=== PATIENT | female | born 1955 | race Caucasian/White ===

== ENCOUNTER 2017-11-26 14:42 | Outpatient (CLI) | payer OTHER | END 2017-11-26 14:51 | disposition home or self-care (01) | LOC: RAD 14:42 | DX: J44.9 Chronic obstructive pulmonary disease, unspecified (principal) ==

== ENCOUNTER 2018-02-05 08:37 | Outpatient (CLI) | payer OTHER | END 2018-02-05 08:42 | disposition home or self-care (01) | LOC: SONOGRAMA 08:37 | DX: R10.84 Generalized abdominal pain (principal) ==

== ENCOUNTER 2018-03-05 11:37 | Emergency (ER) | payer OTHER ==
[~2018-03-05] VITALS: Ht 165.1 cm; Wt 33.6 kg
[~2018-03-05 11:37] MED LIST: CLONAZEPAM0.5 MG PO; CYMBALTA60 MG PO; SEROQUEL300 MG PO; SYNTHROID50 MCG PO; XENAZINE25 MG PO
[2018-03-05] MEDS ORDERED: PROTONIX IV40 MG (11:57)
[2018-03-05] MEDS ORDERED: PREVACID15 MG (11:57)
== END 2018-03-05 16:01 | disposition home or self-care (01) ==
LOC: ER 11:37
DX: T82.898A Other specified complication of vascular prosthetic devices, implants and grafts, initial encounter (principal); J69.0 Pneumonitis due to inhalation of food and vomit; Z45.2 Encounter for adjustment and management of vascular access device; Y84.8 Other medical procedures as the cause of abnormal reaction of the patient, or of later complication, without mention of misadventure at the time of the procedure; Y92.89 Other specified places as the place of occurrence of the external cause

== ENCOUNTER → 2018-03-20 | Emergency (ER) | payer OTHER ==
[~2018-03-20] VITALS: Ht 165.1 cm; Wt 33.6 kg
[~2018-03-20] MED LIST changes: +PREVACID15 MG; +PROTONIX IV40 MG
== END | disposition home or self-care (01) ==
LOC: ER 13:16
DX: G10 Huntington's disease (principal); T82.898A Other specified complication of vascular prosthetic devices, implants and grafts, initial encounter; Z45.2 Encounter for adjustment and management of vascular access device; Y82.8 Other medical devices associated with adverse incidents; Y92.89 Other specified places as the place of occurrence of the external cause

== ENCOUNTER 2018-03-24 12:55 | Inpatient (IN) | payer OTHER ==
[~2018-03-24] VITALS: Ht 165.1 cm; Wt 33.6 kg
== END 2018-03-26 11:39 | disposition home health service (06) | DRG 641 ==
LOC: MEDJ 12:55 → SEC-K 12:55 → MEDJ 13:23
PROC: 3E0F7GC Introduction of Other Therapeutic Substance into Respiratory Tract, Via Natural or Artificial Opening (ICD-10-PCS; 2018-03-24)
PROC: 02HV33Z Insertion of Infusion Device into Superior Vena Cava, Percutaneous Approach (ICD-10-PCS; principal; 2018-03-25)
DX: E86.0 Dehydration (principal); G40.89 Other seizures; G10 Huntington's disease; R13.19 Other dysphagia

== ENCOUNTER 2018-05-18 12:56 | Inpatient (IN) | payer OTHER ==
[~2018-05-18] VITALS: Ht 162.6 cm; Wt 31.3 kg
== END 2018-05-20 11:24 | disposition home or self-care (01) | DRG 641 ==
LOC: SURH 12:56
PROC: 8E0ZXY6 Isolation (ICD-10-PCS; 2018-05-18)
PROC: 0XH Anatomical Regions, Upper Extremities, Insertion (ICD-10-PCS; principal; 2018-05-19)
PROC: 3E0F7GC Introduction of Other Therapeutic Substance into Respiratory Tract, Via Natural or Artificial Opening (ICD-10-PCS; 2018-05-19)
DX: E86.0 Dehydration (principal); G10 Huntington's disease; G40.89 Other seizures; R13.19 Other dysphagia

== ENCOUNTER 2018-05-28 13:30 | Outpatient (CLI) | payer OTHER | END 2018-05-28 13:37 | disposition home or self-care (01) | LOC: RAD 13:30 | DX: J44.9 Chronic obstructive pulmonary disease, unspecified (principal) ==

== ENCOUNTER 2018-05-28 14:28 | Outpatient (CLI) | payer OTHER | END 2018-05-28 14:33 | disposition home or self-care (01) | LOC: LAB 14:28 | DX: I10 Essential (primary) hypertension (principal); E03.8 Other specified hypothyroidism ==

== ENCOUNTER 2018-06-10 14:39 | Inpatient (IN) | payer OTHER ==
[~2018-06-10] VITALS: Ht 165.1 cm; Wt 29.5 kg
== END 2018-06-14 11:06 | disposition home or self-care (01) | DRG 641 ==
LOC: MEDJ 14:39
PROC: 0DH63UZ Insertion of Feeding Device into Stomach, Percutaneous Approach (ICD-10-PCS; principal; 2018-06-11)
DX: E86.0 Dehydration (principal); G40.89 Other seizures; G10 Huntington's disease; R64 Cachexia; R13.19 Other dysphagia
CPT/HCPCS: 240

== ENCOUNTER 2018-06-16 20:07 | Inpatient (IN) | payer OTHER | END 2018-06-21 13:45 | disposition home or self-care (01) | DRG 394 | LOC: SURH 20:07 | PROC: BW20Y0Z Computerized Tomography (CT Scan) of Abdomen using Other Contrast, Unenhanced and Enhanced (ICD-10-PCS; 2018-06-16) | PROC: 8E0ZXY6 Isolation (ICD-10-PCS; 2018-06-16) | PROC: 3E0F7GC Introduction of Other Therapeutic Substance into Respiratory Tract, Via Natural or Artificial Opening (ICD-10-PCS; principal; 2018-06-18) | DX: K94.22 Gastrostomy infection (principal); L03.311 Cellulitis of abdominal wall; G10 Huntington's disease; G40.89 Other seizures; E86.0 Dehydration; B37.2 Candidiasis of skin and nail; B96.1 Klebsiella pneumoniae [K. pneumoniae] as the cause of diseases classified elsewhere; B95.2 Enterococcus as the cause of diseases classified elsewhere; B96.89 Other specified bacterial agents as the cause of diseases classified elsewhere ==

== ENCOUNTER 2019-07-21 09:58 | Outpatient (CLI) | payer OTHER | END 2019-07-21 10:08 | disposition home or self-care (01) | LOC: RAD 09:58 | DX: J44.9 Chronic obstructive pulmonary disease, unspecified (principal) ==

== ENCOUNTER 2019-12-16 14:38 | Outpatient (CLI) | payer OTHER | END 2019-12-16 15:02 | disposition home or self-care (01) | LOC: RAD 14:38 | DX: J44.9 Chronic obstructive pulmonary disease, unspecified (principal) ==

== ENCOUNTER 2019-12-29 10:46 | Outpatient (CLI) | payer OTHER | END 2019-12-29 10:53 | disposition home or self-care (01) | LOC: RAD 10:46 | DX: J44.9 Chronic obstructive pulmonary disease, unspecified (principal) ==

== ENCOUNTER 2020-09-15 10:03 | Outpatient (CLI) | payer OTHER | END 2020-09-15 10:09 | disposition home or self-care (01) | LOC: RAD 10:03 | PROVIDERS: ATTEND Internal Medicine Cardiovascular Disease | DX: R07.89 Other chest pain (principal); J44.9 Chronic obstructive pulmonary disease, unspecified ==